=== PATIENT | male | born 1975 | race Caucasian/White ===

== ENCOUNTER → 2016-06-28 | Outpatient (REF) | payer OTHER ==
[2016-06-28 12:24] LABS: ALBUMIN/GLOBULIN RATIO 1.33 (1.00-1.93); ALKALINE PHOSPHATASE 50 U/L (45-117); ALT/SGPT 45 U/L (12-78); ANION GAP 11 MEQ/L (8-16); AST/SGOT 16 U/L (15-37); BILIRUBIN,TOTAL 0.6 MG/DL (0.2-1.0); BLOOD UREA NITROGEN 16 MG/DL (7-18); CALCIUM LEVEL 8.4 MG/DL (8.5-10.1); CARBON DIOXIDE LEVEL 26 MEQ/L (21-32); CHLORIDE LEVEL 105 MEQ/L (98-107); CHOLESTEROL LEVEL 196 MG/DL (<200); CREATININE FOR GFR 0.84 MG/DL (0.70-1.30); GLOMERULAR FILTRATION RATE > 60.0 (>60); GLUCOSE, FASTING 246 MG/DL (70-105); POTASSIUM SERUM 4.2 MEQ/L (3.5-5.1); SODIUM LEVEL 142 MEQ/L (136-145); TRIGLYCERIDES LEVEL 305 MG/DL (<150)
== END ==
LOC: M SFHCPLAZ 08:45
PROVIDERS: ATTEND Family Medicine
DX: E78.5 Hyperlipidemia, unspecified (principal); E11.9 Type 2 diabetes mellitus without complications

== ENCOUNTER → 2016-10-28 | Outpatient (REF) | payer OTHER ==
[2016-10-28 11:43] LABS: BASO % 0.2 % (0.0-1.0); EOS # 0.3 K/mm3 (0.0-0.50); EOS % 4.6 % (0.0-3.0); LARGE UNSTAINED CELL # 0.1 K/mm3 (0.0-0.4); LARGE UNSTAINED CELL % 1.4 % (0.0-4.0); LYMPH # 1.7 K/mm3 (1.5-4.5); LYMPH % 25.2 % (24.0-44.0); MEAN CORPUSCULAR HEMOGLOBIN 28.9 pg (27.0-33.0); MEAN CORPUSCULAR VOLUME 82.8 fl (80.0-96.0); MONO # 0.6 K/mm3 (0.0-0.8); MONO % 8.7 % (0.0-5.0); NEUTROPHILS # 3.8 K/mm3 (1.8-7.7); NEUTROPHILS % 59.9 % (36.0-66.0); PLATELET COUNT, AUTOMATED 193 k/mm3 (150-450); RED CELL DISTRIBUTION WIDTH 12.9 % (11.5-14.5); WHITE BLOOD COUNT 6.3 K/mm3 (4.0-10.0)
[2016-10-28 12:27] LABS: ALBUMIN 3.9 GM/DL (3.2-5.2); ALKALINE PHOSPHATASE 56 U/L (45-117); ALT/SGPT 43 U/L (12-78); ANION GAP 5 MEQ/L (8-16); AST/SGOT 13 U/L (15-37); BILIRUBIN,TOTAL 0.5 MG/DL (0.2-1.0); BLOOD UREA NITROGEN 16 MG/DL (7-18); CALCIUM LEVEL 8.7 MG/DL (8.5-10.1); CARBON DIOXIDE LEVEL 27 MEQ/L (21-32); CHLORIDE LEVEL 107 MEQ/L (98-107); CREATININE FOR GFR 0.83 MG/DL (0.70-1.30); GLOMERULAR FILTRATION RATE > 60.0 (>60); GLUCOSE, FASTING 232 MG/DL (70-105); POTASSIUM SERUM 4.4 MEQ/L (3.5-5.1); SODIUM LEVEL 139 MEQ/L (136-145); TOTAL PROTEIN 6.9 GM/DL (6.4-8.2)
== END ==
LOC: M SFHCPLAZ 08:15
PROVIDERS: ATTEND Family Medicine
DX: I10 Essential (primary) hypertension (principal); E11.9 Type 2 diabetes mellitus without complications

== ENCOUNTER → 2016-11-08 | Outpatient (REF) | payer OTHER ==
[2016-11-08 11:53] LABS: AMYLASE 30 U/L (25-115)
[2016-12-03 10:49] LABS: PROMETHEUS IBD ANTIBODIES SEE SEPARATE REPORT; PROMETHEUS IBD SNP SEE SEPARATE REPORT
== END ==
LOC: M SFHCPLAZ 09:41
PROVIDERS: ATTEND Family Medicine
DX: R19.7 Diarrhea, unspecified (principal)

== ENCOUNTER → 2017-03-27 | Outpatient (REF) | payer OTHER ==
[2017-03-27 14:05] LABS: AMYLASE 38 U/L (25-115)
== END ==
LOC: M SFHCPLAZ 08:16
PROVIDERS: ATTEND Family Medicine
DX: R19.7 Diarrhea, unspecified (principal)

== ENCOUNTER → 2017-07-25 | Outpatient (REF) | payer OTHER ==
[2017-07-25 11:26] LABS: ESTIMATED AVERAGE GLUCOSE 235 MG/DL (60-110); HEMOGLOBIN A1c 9.8 %
[2017-07-25 11:32] LABS: ALBUMIN 4.1 GM/DL (3.2-5.2); ALBUMIN/GLOBULIN RATIO 1.32 (1.00-1.93); ALKALINE PHOSPHATASE 61 U/L (45-117); ALT/SGPT 53 U/L (12-78); ANION GAP 8 MEQ/L (8-16); AST/SGOT 16 U/L (7-37); BILIRUBIN,TOTAL 0.6 MG/DL (0.2-1.0); BLOOD UREA NITROGEN 12 MG/DL (7-18); CALCIUM LEVEL 9.2 MG/DL (8.5-10.1); CARBON DIOXIDE LEVEL 28 MEQ/L (21-32); CHLORIDE LEVEL 107 MEQ/L (98-107); CPK CREATINE PHOSPHOKINASE 147 U/L (39-308); CREATININE FOR GFR 0.77 MG/DL (0.70-1.30); FREE T4 0.87 NG/DL (0.76-1.46); GLOMERULAR FILTRATION RATE > 60.0 (>60); GLUCOSE, FASTING 199 MG/DL (70-100); POTASSIUM SERUM 4.3 MEQ/L (3.5-5.1); SODIUM LEVEL 143 MEQ/L (136-145); TOTAL PROTEIN 7.2 GM/DL (6.4-8.2)
[2017-07-25 11:49] LABS: PTH INTACT 45.7 PG/ML (18.5-88.0); TOTAL 25(OH) VITAMIN D 18.9 NG/ML (30.0-100.0)
== END ==
LOC: M SFHCPLAZ 08:26
DX: E78.5 Hyperlipidemia, unspecified (principal); E55.9 Vitamin D deficiency, unspecified; E11.9 Type 2 diabetes mellitus without complications
CPT/HCPCS: 82550

== ENCOUNTER → 2017-10-25 | Outpatient (REF) | payer OTHER ==
[2017-10-25 11:53] LABS: ALBUMIN/GLOBULIN RATIO 1.38 (1.00-1.93); ALKALINE PHOSPHATASE 56 U/L (45-117); ALT/SGPT 47 U/L (12-78); ANION GAP 7 MEQ/L (8-16); AST/SGOT 17 U/L (7-37); BILIRUBIN,TOTAL 0.5 MG/DL (0.2-1.0); BLOOD UREA NITROGEN 15 MG/DL (7-18); C REACTIVE PROTEIN QUANTITATIV < 0.30 MG/DL (0.00-0.30); CALCIUM LEVEL 8.7 MG/DL (8.5-10.1); CARBON DIOXIDE LEVEL 27 MEQ/L (21-32); CHLORIDE LEVEL 104 MEQ/L (98-107); CHOLESTEROL LEVEL 247 MG/DL (<200); CHOLESTEROL RISK RATIO 6.861 (<5); CPK CREATINE PHOSPHOKINASE 115 U/L (39-308); CREATININE FOR GFR 0.73 MG/DL (0.70-1.30); GLOMERULAR FILTRATION RATE > 60.0 (>60); GLUCOSE, FASTING 243 MG/DL (70-100); HDL CHOLESTEROL 36 MG/DL (>40); MAGNESIUM LEVEL 1.7 MG/DL (1.8-2.4); NON-HDL-C 211 MG/DL; SODIUM LEVEL 138 MEQ/L (136-145); TOTAL PROTEIN 6.9 GM/DL (6.4-8.2); TRIGLYCERIDES LEVEL 779 MG/DL (<150)
[2017-10-25 13:23] LABS: APPEARANCE, URINE CLEAR (CLEAR); BACTERIA, URINE AUTO NEGATIVE (NEGATIVE); BILIRUBIN, URINE AUTO NEGATIVE (NEGATIVE); BLOOD, URINE BLOOD NEGATIVE (NEGATIVE); COLOR, URINE YELLOW (YELLOW); GLUCOSE, URINE (UA) AUTO 3+ mg/dL (NEGATIVE); KETONE, URINE AUTO NEGATIVE (NEGATIVE); LEUKOCYTE ESTERASE, URINE AUTO NEGATIVE (NEGATIVE); MUCUS, URINE SMALL (NEGATIVE); NITRITE, URINE AUTO NEGATIVE (NEGATIVE); PROTEIN, URINE AUTO 1+ mg/dL (NEGATIVE); RBC, URINE AUTO 0 /HPF (0-3); SPECIFIC GRAVITY URINE AUTO 1.041 (1.002-1.035); SQUAMOUS EPITHELIAL CELL UR AU 0 /HPF (0-6); WBC, URINE AUTO 1 /HPF (0-3)
[2017-10-25 13:29] LABS: ESTIMATED AVERAGE GLUCOSE 232 MG/DL (60-110); HEMOGLOBIN A1c 9.7 %
[2017-10-25 14:15] LABS: MAU/CREAT RATIO 118.9 MCG/MG (0.0-30.0)
== END ==
LOC: M SFHCPLAZ 08:01
DX: E11.9 Type 2 diabetes mellitus without complications (principal); I10 Essential (primary) hypertension

== ENCOUNTER → 2017-11-03 | Outpatient (REF) | payer OTHER ==
[2017-11-03 11:54] LABS: BASO % 0.3 % (0.0-1.0); EOS # 0.3 10^3/uL (0.0-0.50); HEMATOCRIT 47.7 % (42.0-52.0); HEMOGLOBIN 15.9 g/dl (13.5-17.5); IMMATURE GRANULOCYTE % 0.3 % (0-3.0); LYMPH # 1.7 10^3/uL (1.5-4.5); LYMPH % 28.7 % (24.0-44.0); MEAN CORPUSCULAR HEMOGLOBIN 27.6 pg (27.0-33.0); MEAN CORPUSCULAR HGB CONC 33.3 g/dl (32.0-36.5); MEAN CORPUSCULAR VOLUME 82.7 fl (80.0-96.0); MONO # 0.6 10^3/uL (0.0-0.8); MONO % 9.1 % (0.0-5.0); NEUTROPHILS # 3.4 10^3/uL (1.8-7.7); NEUTROPHILS % 56.6 % (36.0-66.0); PLATELET COUNT, AUTOMATED 202 10^3/uL (150-450); RED BLOOD COUNT 5.77 10^6/uL (4.30-6.10); WHITE BLOOD COUNT 6.1 10^3/uL (4.0-10.0)
[2017-11-03 12:14] LABS: LACTIC ACID SEPSIS PROTOCOL < 0.1 MMOL/L (0.4-2.0)
[2017-11-03 12:44] LABS: ALBUMIN 3.9 GM/DL (3.2-5.2); ALBUMIN/GLOBULIN RATIO 1.18 (1.00-1.93); ALKALINE PHOSPHATASE 60 U/L (45-117); ALT/SGPT 55 U/L (12-78); ANION GAP 8 MEQ/L (8-16); AST/SGOT 26 U/L (7-37); BILIRUBIN,TOTAL 0.6 MG/DL (0.2-1.0); BLOOD UREA NITROGEN 16 MG/DL (7-18); CALCIUM LEVEL 8.6 MG/DL (8.5-10.1); CARBON DIOXIDE LEVEL 27 MEQ/L (21-32); CHLORIDE LEVEL 106 MEQ/L (98-107); CHOLESTEROL LEVEL 263 MG/DL (< 200); CPK CREATINE PHOSPHOKINASE 141 U/L (39-308); CREATININE FOR GFR 0.81 MG/DL (0.70-1.30); GLOMERULAR FILTRATION RATE > 60.0 (>60); GLUCOSE, FASTING 153 MG/DL (70-100); LDH LACTATE DEHYDROGENASE 183 U/L (87-241); LIPASE 162 U/L (73-393); PHOSPHORUS LEVEL 3.5 MG/DL (2.5-4.9); POTASSIUM SERUM 4.2 MEQ/L (3.5-5.1); SODIUM LEVEL 141 MEQ/L (136-145); TOTAL PROTEIN 7.2 GM/DL (6.4-8.2); TRIGLYCERIDES LEVEL 1119 MG/DL (<150)
[2017-11-03 12:54] LABS: APPEARANCE, URINE CLEAR (CLEAR); BACTERIA, URINE AUTO NEGATIVE (NEGATIVE); BILIRUBIN, URINE AUTO NEGATIVE (NEGATIVE); BLOOD, URINE BLOOD NEGATIVE (NEGATIVE); COLOR, URINE YELLOW (YELLOW); GLUCOSE, URINE (UA) AUTO 3+ mg/dL (NEGATIVE); KETONE, URINE AUTO TRACE mg/dL (NEGATIVE); LEUKOCYTE ESTERASE, URINE AUTO NEGATIVE (NEGATIVE); NITRITE, URINE AUTO NEGATIVE (NEGATIVE); PROTEIN, URINE AUTO NEGATIVE (NEGATIVE); RBC, URINE AUTO 0 /HPF (0-3); SPECIFIC GRAVITY URINE AUTO 1.041 (1.002-1.035); SQUAMOUS EPITHELIAL CELL UR AU 0 /HPF (0-6); UROBILINOGEN, URINE AUTO 0.2 mg/dL (0.0-2.0); WBC, URINE AUTO 0 /HPF (0-3)
== END ==
LOC: M SFHCPLAZ 10:23
DX: R10.12 Left upper quadrant pain (principal)

== ENCOUNTER → 2018-01-08 | Outpatient (CLI) | payer OTHER ==
[2018-01-08 13:30] LABS: BASO % 0.3 % (0.0-1.0); EOS # 0.3 10^3/uL (0.0-0.50); HEMATOCRIT 47.1 % (42.0-52.0); HEMOGLOBIN 15.8 g/dl (13.5-17.5); IMMATURE GRANULOCYTE % 0.4 % (0-3.0); LYMPH # 1.8 10^3/uL (1.5-4.5); LYMPH % 26.4 % (24.0-44.0); MEAN CORPUSCULAR HEMOGLOBIN 27.9 pg (27.0-33.0); MEAN CORPUSCULAR HGB CONC 33.5 g/dl (32.0-36.5); MEAN CORPUSCULAR VOLUME 83.2 fl (80.0-96.0); MONO # 0.6 10^3/uL (0.0-0.8); MONO % 8.5 % (0.0-5.0); NEUTROPHILS # 4.1 10^3/uL (1.8-7.7); NEUTROPHILS % 60.4 % (36.0-66.0); PLATELET COUNT, AUTOMATED 184 10^3/uL (150-450); RED BLOOD COUNT 5.66 10^6/uL (4.30-6.10); RED CELL DISTRIBUTION WIDTH 13.1 % (11.5-14.5); WHITE BLOOD COUNT 6.7 10^3/uL (4.0-10.0)
[2018-01-08 13:33] LABS: SLIDE REVIEW Report; SOURCE PERIPHERAL SMEAR
[2018-01-08 13:35] LABS: APPEARANCE, URINE CLEAR (CLEAR); BACTERIA, URINE AUTO NEGATIVE (NEGATIVE); BILIRUBIN, URINE AUTO NEGATIVE (NEGATIVE); BLOOD, URINE BLOOD NEGATIVE (NEGATIVE); COLOR, URINE YELLOW (YELLOW); GLUCOSE, URINE (UA) AUTO 3+ mg/dL (NEGATIVE); KETONE, URINE AUTO NEGATIVE (NEGATIVE); LEUKOCYTE ESTERASE, URINE AUTO NEGATIVE (NEGATIVE); MUCUS, URINE SMALL (NEGATIVE); NITRITE, URINE AUTO NEGATIVE (NEGATIVE); PROTEIN, URINE AUTO 1+ mg/dL (NEGATIVE); RBC, URINE AUTO 0 /HPF (0-3); SPECIFIC GRAVITY URINE AUTO 1.041 (1.002-1.035); SQUAMOUS EPITHELIAL CELL UR AU 0 /HPF (0-6); UROBILINOGEN, URINE AUTO 0.2 mg/dL (0.0-2.0); WBC, URINE AUTO 0 /HPF (0-3)
[2018-01-09 01:15] LABS: ALBUMIN 4.2 GM/DL (3.2-5.2); ALKALINE PHOSPHATASE 61 U/L (45-117); ALT/SGPT 76 U/L (12-78); AST/SGOT 33 U/L (7-37); BILIRUBIN,DIRECT < 0.1 MG/DL (0.0-0.2); BILIRUBIN,TOTAL 0.4 MG/DL (0.2-1.0); TOTAL PROTEIN 7.2 GM/DL (6.4-8.2)
[2018-01-10 19:20] LABS: HIV 1&2 SCREEN CENTAUR NEGATIVE (NEGATIVE)
== END ==
LOC: M SMT 09:14
DX: R16.1 Splenomegaly, not elsewhere classified (principal)
CPT/HCPCS: 80076

== ENCOUNTER → 2018-01-16 | Outpatient (REF) | payer OTHER ==
[2018-01-16 12:40] LABS: ESTIMATED AVERAGE GLUCOSE 232 MG/DL (60-110); HEMOGLOBIN A1c 9.7 %
[2018-01-16 12:44] LABS: ALBUMIN 3.8 GM/DL (3.2-5.2); ALBUMIN/GLOBULIN RATIO 1.15 (1.00-1.93); ALKALINE PHOSPHATASE 66 U/L (45-117); ALT/SGPT 54 U/L (12-78); ANION GAP 7 MEQ/L (8-16); AST/SGOT 20 U/L (7-37); BILIRUBIN,TOTAL 0.5 MG/DL (0.2-1.0); BLOOD UREA NITROGEN 13 MG/DL (7-18); CALCIUM LEVEL 8.7 MG/DL (8.5-10.1); CARBON DIOXIDE LEVEL 28 MEQ/L (21-32); CHLORIDE LEVEL 101 MEQ/L (98-107); CHOLESTEROL LEVEL 286 MG/DL (<200); CHOLESTEROL RISK RATIO 8.411 (<5); CREATININE FOR GFR 0.71 MG/DL (0.70-1.30); GLOMERULAR FILTRATION RATE > 60.0 (>60); GLUCOSE, FASTING 289 MG/DL (70-100); HDL CHOLESTEROL 34 MG/DL (>40); NON-HDL-C 252 MG/DL; POTASSIUM SERUM 4.3 MEQ/L (3.5-5.1); SODIUM LEVEL 136 MEQ/L (136-145); TOTAL PROTEIN 7.1 GM/DL (6.4-8.2); TRIGLYCERIDES LEVEL 877 MG/DL (<150)
[2018-01-16 12:48] LABS: TOTAL 25(OH) VITAMIN D 22.3 NG/ML (30.0-100.0)
[2018-01-16 12:49] LABS: PTH INTACT 37.7 PG/ML (18.5-88.0)
[2018-01-17 14:17] LABS: C-PEPTIDE 4.3 ng/mL (1.1-4.4)
== END ==
LOC: M SFHCPLAZ 10:04
DX: E55.9 Vitamin D deficiency, unspecified (principal); E11.8 Type 2 diabetes mellitus with unspecified complications; E78.5 Hyperlipidemia, unspecified

== ENCOUNTER → 2018-01-18 | Outpatient (CLI) | payer OTHER ==
[~2018-01-18] MED LIST: GASTROGRAFIN SOLUTION 30ML (Q9963) As Ordered; ISOVUE-370 76% 100ML VIAL (Q9967) As Ordered
== END ==
LOC: M RAD 13:41
DX: K76.0 Fatty (change of) liver, not elsewhere classified (principal); R16.0 Hepatomegaly, not elsewhere classified
CPT/HCPCS: Q9963

== ENCOUNTER → 2018-03-20 | Outpatient (REF) | payer OTHER ==
[2018-03-20 12:12] LABS: ANION GAP 7 MEQ/L (8-16); BLOOD UREA NITROGEN 24 MG/DL (7-18); CALCIUM LEVEL 9.8 MG/DL (8.5-10.1); CARBON DIOXIDE LEVEL 27 MEQ/L (21-32); CHLORIDE LEVEL 104 MEQ/L (98-107); GLOMERULAR FILTRATION RATE > 60.0 (>60); GLUCOSE, FASTING 207 MG/DL (70-100); POTASSIUM SERUM 4.3 MEQ/L (3.5-5.1); SODIUM LEVEL 138 MEQ/L (136-145)
== END ==
LOC: M SFHCPLAZ 08:07
DX: R16.1 Splenomegaly, not elsewhere classified (principal)

== ENCOUNTER 2018-04-17 12:15 | Day surgery (SDC) | payer OTHER ==
[~2018-04-17] VITALS: Ht 177.8 cm; Wt 108.9 kg
[~2018-04-17 12:15] MED LIST changes: +EZET10TA PO; -GASTROGRAFIN SOLUTION 30ML (Q9963) As Ordered; +INVO300T PO; +IRBE75TA5 PO; -ISOVUE-370 76% 100ML VIAL (Q9967) As Ordered; +MELO15TA28 PO; +METF-723 PO; +PANT40TA3 PO; +ROSU40TA3 PO; +TRES1INJ SQ; +VICT18IN SQ; +VITA200015 PO
[2018-04-17] MEDS ORDERED: NS 1,000 ML IV ONE (12:30)
[2018-04-17] MEDS ORDERED: LIDOCAINE 2% INJ 100 MG/5 ML SDV (FOR ANES.) As Ordered ONE (14:27)
[2018-04-17] MEDS ORDERED: PROPOFOL 200 MG/20 ML VIAL As Ordered ONE ×2 (14:27→14:56)
--- NOTE | 2018-04-17 15:22 | ROOR ---
Patient Name: Woody Galdamez Procedure Date: 04/17/2018 2:38 PM Date of : 1975 Age: 43 Room: [facility] Gender: Male Note Status: Finalized Procedure: Colonoscopy Indications: Abdominal pain in the left lower quadrant, Abdominal pain in the left upper quadrant Providers: Santino Hubbard MD Referring MD: To Juárez MD Requesting Provider: Medicines: Monitored Anesthesia Care Complications: No immediate complications. Procedure: Pre-Anesthesia Assessment: - Prior to the procedure, a History and Physical was performed, and patient medications and allergies were reviewed. The patient is competent. The risks and benefits of the procedure and the sedation options and risks were discussed with the patient. All questions were answered and informed consent was obtained. Patient identification and proposed procedure were verified by the physician, the nurse and the police investigator in the procedure room. Mental Status Examination: alert and oriented. Airway Examination: normal oropharyngeal airway and neck mobility. CV Examination: regular rate and rhythm. Prophylactic Antibiotics: The patient does not require prophylactic antibiotics. Prior Anticoagulants: The patient has taken no previous anticoagulant or antiplatelet agents. ASA Grade Assessment: II - A patient with mild systemic disease. After reviewing the risks and benefits, the patient was deemed in satisfactory condition to undergo the procedure. The anesthesia plan was to use monitored anesthesia care (MAC). Immediately prior to administration of medications, the patient was re-assessed for adequacy to receive sedatives. The heart rate, respiratory rate, oxygen saturations, blood pressure, adequacy of pulmonary ventilation, and response to care were monitored throughout the procedure. The physical status of the patient was re-assessed after the procedure. The Colonoscope was introduced through the anus and advanced to the cecum, identified by appendiceal orifice and ileocecal valve. The colonoscopy was performed without difficulty. The patient tolerated the procedure well. The quality of the bowel preparation was excellent. Findings: The perianal and digital rectal examinations were normal. The colon (entire examined portion) appeared normal. Impression: - The entire examined colon is normal. - No specimens collected. Recommendation: - Discharge patient to home. - Resume previous diet. - Continue present medications. Santino Hubbard MD 04/17/2018 3:21:38 PM Number of Addenda: 0 Note Initiated On: 04/17/2018 2:38 PM Estimated Blood Loss: Estimated blood loss: none.
[2018-04-17 15:40] VITALS: BP 144/82
== END 2018-04-17 15:47 | disposition home or self-care (01) ==
LOC: M OPP 12:15
PROVIDERS: ATTEND Surgery
DX: R10.32 Left lower quadrant pain (principal); R10.12 Left upper quadrant pain; K76.0 Fatty (change of) liver, not elsewhere classified; K21.9 Gastro-esophageal reflux disease without esophagitis; E78.5 Hyperlipidemia, unspecified; E11.9 Type 2 diabetes mellitus without complications; Z79.4 Long term (current) use of insulin; Z79.899 Other long term (current) drug therapy

== ENCOUNTER → 2018-07-05 | Outpatient (REF) | payer OTHER ==
[2018-07-05 14:08] LABS: C REACTIVE PROTEIN QUANTITATIV < 0.30 MG/DL (0.00-0.30); CHOLESTEROL LEVEL 311 MG/DL (<200); CHOLESTEROL RISK RATIO 8.405 (<5); FREE T4 0.91 NG/DL (0.76-1.46); HDL CHOLESTEROL 37 MG/DL (>40); NON-HDL-C 274 MG/DL; TRIGLYCERIDES LEVEL 1914 MG/DL (<150)
[2018-07-05 15:16] LABS: HEMOGLOBIN A1c 10.5 %
== END ==
LOC: M SFHCPLAZ 08:15
PROVIDERS: ATTEND Family Medicine
DX: E11.8 Type 2 diabetes mellitus with unspecified complications (principal)

== ENCOUNTER → 2018-11-20 | Outpatient (REF) | payer OTHER ==
[~2018-11-20] MED LIST changes: -EZET10TA PO; +EZET10TA21 PO; -ROSU40TA3 PO; +ROSU40TA4 PO
== END ==
LOC: M SFHCPLAZ 08:42
PROVIDERS: ATTEND Physician Assistant Medical
DX: K21.9 Gastro-esophageal reflux disease without esophagitis (principal); E78.5 Hyperlipidemia, unspecified; I10 Essential (primary) hypertension; E11.8 Type 2 diabetes mellitus with unspecified complications

== ENCOUNTER → 2018-12-10 | Outpatient (REF) | payer OTHER ==
[2018-12-10 10:00] LABS: BASO % 0.4 % (0.0-1.0); EOS # 0.2 10^3/uL (0.0-0.50); EOS % 4.1 % (0.0-3.0); HEMATOCRIT 46.7 % (42.0-52.0); HEMOGLOBIN 15.7 g/dl (13.5-17.5); LYMPH # 1.5 10^3/uL (1.5-4.5); LYMPH % 26.6 % (24.0-44.0); MEAN CORPUSCULAR HEMOGLOBIN 27.7 pg (27.0-33.0); MEAN CORPUSCULAR HGB CONC 33.6 g/dl (32.0-36.5); MEAN CORPUSCULAR VOLUME 82.5 fl (80.0-96.0); MONO # 0.6 10^3/uL (0.0-0.8); MONO % 9.9 % (0.0-5.0); NEUTROPHILS # 3.3 10^3/uL (1.8-7.7); NEUTROPHILS % 58.5 % (36.0-66.0); PLATELET COUNT, AUTOMATED 189 10^3/uL (150-450); RED BLOOD COUNT 5.66 10^6/uL (4.30-6.10); WHITE BLOOD COUNT 5.7 10^3/uL (4.0-10.0)
[2018-12-10 10:36] LABS: HEMOGLOBIN A1c 9.1 %
[2018-12-10 10:53] LABS: ALBUMIN 4.1 GM/DL (3.2-5.2); ALT/SGPT 42 U/L (12-78); BILIRUBIN,TOTAL 0.4 MG/DL (0.2-1.0); BLOOD UREA NITROGEN 13 MG/DL (7-18); CALCIUM LEVEL 9.4 MG/DL (8.5-10.1); CARBON DIOXIDE LEVEL 29 MEQ/L (21-32); CHLORIDE LEVEL 107 MEQ/L (98-107); CHOLESTEROL LEVEL 243 MG/DL (<200); CHOLESTEROL RISK RATIO 6.942 (<5); CPK CREATINE PHOSPHOKINASE 151 U/L (39-308); CREATININE FOR GFR 0.83 MG/DL (0.70-1.30); GLOMERULAR FILTRATION RATE > 60.0 (>60); GLUCOSE, FASTING 229 MG/DL (70-100); HDL CHOLESTEROL 35 MG/DL (>40); NON-HDL-C 208 MG/DL; POTASSIUM SERUM 4.2 MEQ/L (3.5-5.1); SODIUM LEVEL 142 MEQ/L (136-145); TOTAL PROTEIN 7.3 GM/DL (6.4-8.2); TRIGLYCERIDES LEVEL 999 MG/DL (<150)
== END ==
LOC: M SFHCPLAZ 08:11
PROVIDERS: ATTEND Physician Assistant Medical
DX: K21.9 Gastro-esophageal reflux disease without esophagitis (principal); E78.5 Hyperlipidemia, unspecified; I10 Essential (primary) hypertension; E11.8 Type 2 diabetes mellitus with unspecified complications

== ENCOUNTER → 2019-03-21 | Outpatient (REF) | payer OTHER ==
[2019-03-21 12:10] LABS: CHOLESTEROL RISK RATIO 2.9 (<5)
[2019-03-21 14:00] LABS: HEMOGLOBIN A1c 8.7 %
== END ==
LOC: M SFHCPLAZ 08:24
PROVIDERS: ATTEND Physician Assistant Medical
DX: E11.8 Type 2 diabetes mellitus with unspecified complications (principal); E78.5 Hyperlipidemia, unspecified

== ENCOUNTER 2019-04-10 01:58 | Emergency (ER) | payer OTHER ==
[~2019-04-10] VITALS: Ht 175.3 cm; Wt 109.1 kg
[2019-04-10 02:46] LABS: BASO % 0.2 % (0.0-1.0); EOS # 0.2 10^3/uL (0.0-0.5); EOS % 1.6 % (0.0-3.0); HEMATOCRIT 50.1 % (42.0-52.0); HEMOGLOBIN 16.5 g/dl (13.5-17.5); LYMPH # 1.1 10^3/uL (1.5-5.0); MEAN CORPUSCULAR HEMOGLOBIN 27.8 pg (27.0-33.0); MEAN CORPUSCULAR HGB CONC 32.9 g/dl (32.0-36.5); MEAN CORPUSCULAR VOLUME 84.5 fl (80.0-96.0); MONO # 0.8 10^3/uL (0.0-0.8); MONO % 6.8 % (0.0-5.0); NEUTROPHILS % 82.2 % (36.0-66.0); PLATELET COUNT, AUTOMATED 234 10^3/uL (150-450); RED BLOOD COUNT 5.93 10^6/uL (4.30-6.10); WHITE BLOOD COUNT 12.2 10^3/uL (4.0-10.0)
[2019-04-10 03:08] LABS: ALBUMIN 4.6 GM/DL (3.2-5.2); ALT/SGPT 36 U/L (12-78); BILIRUBIN,DIRECT 0.1 MG/DL (0.0-0.2); BILIRUBIN,TOTAL 0.8 MG/DL (0.2-1.0); BLOOD UREA NITROGEN 13 MG/DL (7-18); CALCIUM LEVEL 9.6 MG/DL (8.5-10.1); CARBON DIOXIDE LEVEL 26 MEQ/L (21-32); CHLORIDE LEVEL 105 MEQ/L (98-107); CREATININE FOR GFR 0.97 MG/DL (0.70-1.30); GLOMERULAR FILTRATION RATE > 60.0 (>60); GLUCOSE, FASTING 224 MG/DL (70-100); LIPASE 174 U/L (73-393); SODIUM LEVEL 138 MEQ/L (136-145); TOTAL PROTEIN 7.7 GM/DL (6.4-8.2)
[2019-04-10] MEDS ORDERED: NS 1,000 ML IV ONE (03:30)
[2019-04-10] MEDS ORDERED: METOCLOPRAMIDE INJ 10MG/2ML VIAL (J2765) IV ONE (03:30)
[2019-04-10 05:28] LABS: VENOUS BASE EXCESS -3.5 (-2.0-2.0); VENOUS O2 SATURATION 61.5 % (60.0-80.0); VENOUS PARTIAL PRESSURE CO2 46.8 mmHg (38.0-50.0); VENOUS PARTIAL PRESSURE O2 34.8 mmHg (30.0-50.0); VENOUS STANDARD HCO3 20.7 MEQ/L; VENOUS TOTAL CO2 24.5 MEQ/L (24.0-28.0)
[2019-04-10] MEDS ORDERED: REGL10TA6 PO (05:40)
[2019-04-10 05:43] VITALS: BP 122/78
[2019-04-10 05:50] LABS: ACETONE/KETONE 1.71 MG/DL (<2.81)
== END 2019-04-10 05:51 | disposition home or self-care (01) ==
LOC: M ED 01:58
DX: K52.9 Noninfective gastroenteritis and colitis, unspecified (principal); E11.9 Type 2 diabetes mellitus without complications; I10 Essential (primary) hypertension; E78.5 Hyperlipidemia, unspecified; K21.9 Gastro-esophageal reflux disease without esophagitis; Z88.0 Allergy status to penicillin; Z79.4 Long term (current) use of insulin; Z79.84 Long term (current) use of oral hypoglycemic drugs; Z79.899 Other long term (current) drug therapy
CPT/HCPCS: 80048; 80076; 82010; 82803; 83605; 83690; 83930; 85025; 96374; 99284; J2765

== ENCOUNTER 2019-05-26 11:00 | Emergency (ER) | payer OTHER ==
[~2019-05-26] VITALS: Ht 175.3 cm; Wt 109.8 kg
[~2019-05-26 11:00] MED LIST changes: +REGL10TA6 PO
[2019-05-26] MEDS ORDERED: OZEM2INJ2 (11:09)
[2019-05-26] MEDS ORDERED: TELM1TAB33 (11:09)
[2019-05-26] MEDS ORDERED: ESOM40CA35 (11:09)
[2019-05-26] MEDS ORDERED: ISOVUE-370 76% 100ML VIAL (Q9967) As Ordered ONE (11:43)
[2019-05-26] MEDS ORDERED: ONDANSETRON 4MG/2ML VIAL (J2405) IV ONE (11:45)
[2019-05-26] MEDS ORDERED: MORPHINE 2 MG/ML 1ML VIAL (J2270) IV PRN (11:45)
[2019-05-26 11:52] LABS: BASO % 0.6 % (0.0-1.0); EOS # 0.3 10^3/uL (0.0-0.5); EOS % 3.8 % (0.0-3.0); HEMATOCRIT 47.8 % (42.0-52.0); HEMOGLOBIN 15.9 g/dl (13.5-17.5); LYMPH # 1.5 10^3/uL (1.5-5.0); LYMPH % 23.5 % (24.0-44.0); MEAN CORPUSCULAR HEMOGLOBIN 27.4 pg (27.0-33.0); MEAN CORPUSCULAR HGB CONC 33.3 g/dl (32.0-36.5); MEAN CORPUSCULAR VOLUME 82.4 fl (80.0-96.0); MONO # 0.5 10^3/uL (0.0-0.8); MONO % 7.8 % (0.0-5.0); NEUTROPHILS # 4.2 10^3/uL (1.5-8.5); NEUTROPHILS % 63.8 % (36.0-66.0); PLATELET COUNT, AUTOMATED 193 10^3/uL (150-450); WHITE BLOOD COUNT 6.6 10^3/uL (4.0-10.0)
[2019-05-26 12:02] LABS: INR 0.97; PARTIAL THROMBOPLASTIN TIME 27.7 SECONDS (25.0-38.4); PROTHROMBIN TIME 12.6 SECONDS (11.8-14.0)
--- NOTE | 2019-05-26 13:02 | REP ---
AP PORTABLE CHEST: 05/26/2019. Comparison: 01/08/2018. Clinical history: Chest pain. Findings: Lungs are adequately inflated. There is no effusion, infiltrate, atelectasis or mass. The heart, mediastinal and hilar contours are normal. Aorta and airway were grossly intact. Minor degenerative changes in the spine and AC joints. Impression: 1. No acute cardiopulmonary change. Electronically Signed by Rush Castellanos MD 05/26/2019 08:27 P
[2019-05-26] MEDS ORDERED: NORCO, ANEXSIA 5/325MG TABLET (HYDROcodone/ACETAMINOPHEN) PO ONE (13:15)
[2019-05-26 13:17] LABS: ALT/SGPT 65 U/L (12-78); BILIRUBIN,DIRECT < 0.1 MG/DL (0.0-0.2); BILIRUBIN,TOTAL 0.4 MG/DL (0.2-1.0); CK-MB VALUE MASS < 1.0 NG/ML (<3.6); CPK CREATINE PHOSPHOKINASE 82 U/L (39-308); FREE T4 1.13 NG/DL (0.76-1.46); LIPASE 126 U/L (73-393); MB/CK RELATIVE INDEX 1.22 (< OR =4); TOTAL PROTEIN 7.1 GM/DL (6.4-8.2); TROPONIN I < 0.02 NG/ML (< 0.10)
--- NOTE | 2019-05-26 13:26 | REP ---
CT ANGIOGRAM CHEST: 05/26/2019. Comparison: AP portable chest 05/26/2019, PA 01/08/2018. Clinical history: Chest pain. Rule out dissection. Technique: Bolus of 75 mL Isovue 370, scanning through the chest with coronal and sagittal reconstructions provided. Findings: The lung corado are well inflated and clear. There is no effusion, infiltrate, nodule, atelectasis or mass. No pleural thickening or calcified pleural plaque. No pneumothorax or pneumomediastinum. The heart is not enlarged. There is no pericardial thickening or effusion. The main, right and left pulmonary arteries as well as visible lobar arteries are without filling defects to suggest embolism proximally. The mediastinum, hilar regions, axillary and supraclavicular regions show no adenopathy or mass. There is a small nodule in the left lobe of the thyroid about 6.6 mm. The ascending arch and descending aorta have normal calibers and are without aneurysm or dissection. That portion of upper abdominal aorta included is normal. Three vessels off the arch show no stenosis, aneurysm or dissection. Bone windows show the sternum, manubrium, clavicles, left AC joint, the bilateral glenohumeral joints, scapulae, visualized ribs and spine without acute finding. There are some marginal osteophytes in the spine which I would regard as normal for age. Upper abdomen included shows borderline hepatomegaly with a 17 cm vertical diameter of the liver in the midclavicular line and the entire liver not imaged. No splenomegaly or focal splenic lesion. Adrenal glands, gallbladder, pancreas, upper poles of kidneys and bowel loops are all unremarkable. Impression: 1. There is no CT evidence of aortic aneurysm or dissection. The great vessels off the arch also are without aneurysm or dissection. 2. No central pulmonary emboli visible. 3. There is no mediastinal or hilar mass, adenopathy, fluid collection or other significant finding. 4. Lungs clear. Bones unremarkable. 5. Upper abdomen with borderline liver size with a 17 cm vertical diameter of the liver which is incompletely evaluated in this field of view. No focal lesions in the abdomen included on this study. Electronically Signed by Rush Castellanos MD 05/26/2019 08:27 P
[2019-05-26] MEDS ORDERED: SKEL800T97 PO (14:09)
[2019-05-26] MEDS ORDERED: NORC1TAB7 PO (14:10)
--- NOTE | 2019-05-26 14:32 | REP ---
THORACIC SPINE THREE VIEWS: 05/26/2019. Clinical history: Mid back pain. Comparison: CT angio chest bone windows 05/26/2019, CXR 01/08/2018. Findings: Three views including the coned view of the cervicothoracic junction show no scoliosis on the AP view. The pedicles, spinous and transverse processes along with posterior rib articulations and medial clavicles were all intact. Small marginal osteophytes are seen at multiple levels. Paraspinal lines are not displaced. The lateral view shows no compression fracture or destructive lesion. There are small anterior osteophytes. Posterior elements intact on the lateral view. The swimmer's projection shows cervical thoracic junction aligning normally and some cervical spondylosis in the lower cervical region is mild. Impression: 1. Negative thoracic spine series for fracture, destructive bone lesion, significant degenerative change or other acute finding. The paraspinal lines were normal. Negative exam. Electronically Signed by Rush Castellanos MD 05/26/2019 08:32 P
[2019-05-26 14:37] VITALS: BP 133/70
--- NOTE | 2019-05-26 19:27 | ECGEPIP ---
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
== END 2019-05-26 14:48 | disposition home or self-care (01) ==
LOC: M ED 11:00
DX: R07.9 Chest pain, unspecified (principal); R06.02 Shortness of breath; M54.6 Pain in thoracic spine; R94.31 Abnormal electrocardiogram [ECG] [EKG]; E10.9 Type 1 diabetes mellitus without complications; E78.5 Hyperlipidemia, unspecified; Z88.0 Allergy status to penicillin; Z79.4 Long term (current) use of insulin; Z79.83 Long term (current) use of bisphosphonates; Z79.84 Long term (current) use of oral hypoglycemic drugs; Z79.899 Other long term (current) drug therapy
CPT/HCPCS: 71045; 71275; 72072; 80047; 80076; 82550; 82553; 83690; 84439; 84443; 84484; 85025; 85610; 85730; 93005; 93041; 94760; 96374; 99285; J2270; Q9967

== ENCOUNTER 2019-10-11 21:08 | Day surgery (SDC) | payer OTHER ==
[~2019-10-11] VITALS: Ht 175.3 cm; Wt 113.5 kg
[~2019-10-11 21:08] MED LIST changes: +ESOM40CA35 PO; +IRBE75TA4 PO; -IRBE75TA5 PO; +NORC1TAB7 PO; +OZEM2INJ2 SC; +SKEL800T97 PO; +TELM1TAB33 PO
[2019-10-11] MEDS ORDERED: METF-838 PO (21:34)
[2019-10-11] MEDS ORDERED: FENO145T7 PO (21:34)
[2019-10-11] MEDS ORDERED: FARX1TAB3 PO (21:34)
[2019-10-11] MEDS ORDERED: ceFAZolin SOD 1 GM in D5W MINI-BAG PLUS 50 ML IV ONE (22:15)
--- NOTE | 2019-10-11 22:54 | REPVR ---
PROCEDURE INFORMATION: Exam: CT Left Lower Extremity Without Contrast, Knee Exam date and time: 10/11/2019 10:34 PM Age: 44 years old Clinical indication: Injury or trauma; Injury history: Drill fell onto knee breaking drill bit; Initial encounter; Puncture; Patella or knee; Left; With foreign body; Additional info: Foreign body in knee TECHNIQUE: Imaging protocol: CT of the Left lower extremity without contrast was performed. Exam focused on the knee. Radiation optimization: All CT scans at this facility use at least one of these dose optimization techniques: automated exposure control; mA and/or kV adjustment per patient size (includes targeted exams where dose is matched to clinical indication); or iterative reconstruction. COMPARISON: CR Knee, complete LEFT 10/11/2019 9:41 PM FINDINGS: Bones/joints: Small knee joint effusion. Soft tissues: Metallic fragment demonstrated in the suprapatellar soft tissues and piercing the anterior superior cortical likely margin of the patella representing a metallic foreign body. Subcutaneous air demonstrated in the deep subcutaneous layer in the suprapatellar region likely posttraumatic. Small popliteal fossa cyst. Inflammatory changes in the prepatellar and infrapatellar soft tissues anterior to the infrapatellar tendon. IMPRESSION: 1. Metallic fragment demonstrated in the suprapatellar soft tissues and proximal patellar likely representing a metallic foreign body. 2. Subcutaneous air demonstrated in the deep subcutaneous layer in the suprapatellar region likely posttraumatic. 3. Small knee joint effusion. 4. Inflammatory changes in the prepatellar and infrapatellar soft tissues anterior to the infrapatellar tendon. Electronically signed by: Kimani Stoddard On 10/11/2019 22:54:26 PM
[2019-10-11] MEDS ORDERED: ACETAMINOPHEN 500 MG TAB PO PRN (23:30)
[2019-10-11 23:32] LABS: BASO % 0.3 % (0.0-1.0); EOS # 0.2 10^3/uL (0.0-0.5); EOS % 2.1 % (0.0-3.0); LYMPH # 1.3 10^3/uL (1.5-5.0); LYMPH % 16.8 % (24.0-44.0); MEAN CORPUSCULAR HEMOGLOBIN 27.8 pg (27.0-33.0); MEAN CORPUSCULAR HGB CONC 33.3 g/dl (32.0-36.5); MEAN CORPUSCULAR VOLUME 83.5 fl (80.0-96.0); MONO # 0.7 10^3/uL (0.0-0.8); MONO % 9.1 % (0.0-5.0); NEUTROPHILS # 5.5 10^3/uL (1.5-8.5); NEUTROPHILS % 71.3 % (36.0-66.0); PLATELET COUNT, AUTOMATED 205 10^3/uL (150-450); RED BLOOD COUNT 5.03 10^6/uL (4.30-6.10); WHITE BLOOD COUNT 7.7 10^3/uL (4.0-10.0)
[2019-10-11] MEDS ORDERED: VITAD1000T PO (23:32)
[2019-10-11] MEDS: LR 1,000 ML IV SCH (23:38)
[2019-10-12] VITALS (8 sets, daily range): BP systolic 122–152; BP diastolic 74–95
[2019-10-12 00:05] LABS: BLOOD UREA NITROGEN 17 MG/DL (7-18); CALCIUM LEVEL 8.8 MG/DL (8.5-10.1); CARBON DIOXIDE LEVEL 27 MEQ/L (21-32); CHLORIDE LEVEL 108 MEQ/L (98-107); CREATININE FOR GFR 0.87 MG/DL (0.70-1.30); GLOMERULAR FILTRATION RATE > 60.0 (>60); GLUCOSE, FASTING 148 MG/DL (70-100); POTASSIUM SERUM 4.2 MEQ/L (3.5-5.1); SODIUM LEVEL 140 MEQ/L (136-145)
[2019-10-12] MEDS: MORPHINE 2 MG/ML 1ML VIAL (J2270) IV PRN ×2 (01:36→05:39)
[2019-10-12] MEDS ORDERED: HYDR-3713 PO (08:51)
[2019-10-12] MEDS ORDERED: BACT800T5 PO (08:51)
[2019-10-12] MEDS ORDERED: CLINDAMYCIN 900 MG in IV 1 EA IV ONE (09:00)
[2019-10-12] MEDS: LR 1,000 ML IV SCH (10:13)
--- NOTE | 2019-10-12 10:47 | REP ---
A new five views left knee. Indication: Left knee pain following injury. Comparison: 05/03/2010. Findings: Radiopaque foreign body is noted along the anterior-superior aspect of the patella. Joint spaces normal. There is no pleural effusion. No acute fracture, subluxation or dislocation is present. Impression: Foreign body along the anterior superior aspect of the patella. No acute fracture. Electronically Signed by Woody Aguirre DO 10/12/2019 10:38 A
[2019-10-12] MEDS ORDERED: MIDAZOLAM INJ 2MG/2ML VIAL (J2250 PER 1MG) As Ordered ONE (14:40)
[2019-10-12] MEDS ORDERED: ONDANSETRON 4MG/2ML VIAL As Ordered ONE (14:40)
[2019-10-12] MEDS ORDERED: fentaNYL 100 MCG/2 ML INJECTION (J3010) As Ordered ONE (14:40)
[2019-10-12] MEDS ORDERED: propofoL 200 MG/20 ML VIAL As Ordered ONE (14:40)
[2019-10-12] MEDS ORDERED: LIDOCAINE 2% 100MG/5ML SDV (FOR ANES.) As Ordered ONE (14:40)
[2019-10-12] MEDS ORDERED: ceFAZolin 2 GM/D5W 50 ML IV BAG (J0690 PER 500MG) As Ordered ONE (14:51)
[2019-10-12] MEDS ORDERED: BUPIVACAINE HCL 0.5% 30 ML VIAL As Ordered ONE (14:51)
[2019-10-12] MEDS ORDERED: dexameTHASONE 4 MG/ML 1ML VIAL (J1100 PER 1MG) As Ordered ONE (14:58)
[2019-10-12] MEDS ORDERED: KETOROLAC 60MG 2ML VIAL As Ordered ONE (15:19)
[2019-10-12] MEDS ORDERED: LR 1,000 ML IV SCH (16:30)
[2019-10-12] MEDS ORDERED: oxyCODONE 5MG TAB PO PRN (16:30)
[2019-10-12] MEDS ORDERED: fentaNYL 100 MCG/2 ML INJECTION (J3010) IV PRN (16:30)
[2019-10-12] MEDS ORDERED: ONDANSETRON 4MG/2ML VIAL IV PRN (16:30)
--- NOTE | 2019-10-13 09:08 | CR ---
DATE OF CONSULTATION: 10/12/2019 INDICATION: Left knee foreign body. 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 The x-rays in the emergency room (ER) revealed a retained drill bit tip lodged within the patella. I did obtain a CT scan to ensure no arthrotomy, and there was no effusion on the CT scan and it appeared that the drill bit was lodged both within bone and in the quadriceps tendon. 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 Risks and benefits of the surgery were discussed. Written informed consent obtained. So the patient was reporting moderate pain with knee motion up to 7 out of 10 on the pain scale. He denied pain at rest. Pain is described as sharp and stabbing. He denied numbness in his foot. The patient's past medical history, past surgical history, medications, allergies, and social history were reviewed. He is an insulin-dependent diabetic and has hypertension. He has had tonsils and adenoids removed. He had a right knee surgery in the past. He also has some chronic back pain. Patient does not smoke, abuse alcohol or illicit drugs. 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 He has a girlfriend. REVIEW OF SYSTEMS: Patient denied neurologic, cardiac, pulmonary, abdominal, or skin or urinary symptoms. Musculoskeletal as above. PHYSICAL EXAM: Revealed a well-appearing gentleman in no distress. Alert and orientated times three. Neurologic: Appropriate mood and affect. Cardiovascular: 2+ posterior tibial (PT) pulse. Pulmonary: Nonlabored breathing. Abdomen: Nondistended. Skin: Of the left knee has a puncture wound 2 cm proximal to the proximal pole of the patella. Musculoskeletal: Patient had significant pain with any knee flexion. No effusion. Calf soft and nontender. Distally neurovascular intact. X-rays of the left knee from [facility] obtained and available for my review. There is a retained drill bit lodged in the superior pole of the patella. No fractures. CT scan also revealed a large drill bit within the proximal pole of the patella and quadriceps tendon. No obvious effusion. No clear evidence of arthrotomy. Patient received 2 grams intravenous (IV) cefazolin and was updated on tetanus. He was admitted to [facility] status for planned foreign body removal and knee washout.
--- NOTE | 2019-10-13 15:57 | ECGEPIP ---
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
--- NOTE | 2019-10-14 07:51 | REP ---
Clinical: Foreign body removal. Technique: Intraoperative fluoroscopic imaging using portable C-arm technique. Findings: Multiple images demonstrate satisfactory removal of small foreign body along the superior aspect of the patella. Total fluoroscopic time 11 seconds. Impression: Satisfactory foreign body removal. Electronically Signed by Jax Boone MD 10/14/2019 07:43 A
--- NOTE | 2019-10-15 18:21 | RO ---
DATE OF PROCEDURE: 10/12/2019 PREOPERATIVE DIAGNOSES: 1. Left knee foreign body. 2. Left knee potential traumatic arthrotomy POSTOPERATIVE DIAGNOSES: 1. Left knee foreign body. PROCEDURE: 1. Left knee open foreign body removal. 2. Left knee diagnostic arthroscopy and irrigation and debridement of knee joint. SURGEON: Dr. Andres Sena ECOSYSTEM ECOLOGY PROFESSOR: None. ANESTHESIA: General. IV FLUIDS: Lactated Ringer's. ESTIMATED BLOOD LOSS: 5 mL. IMPLANTS: None. SPECIMEN: Drill bit tip to pathology. CLOSURE: Nylon. DESCRIPTION OF PROCEDURE: Patient identified in the preoperative holding area. He was previously seen up on the floor where a drill had fallen off and by bad luck, it penetrated the superior pole of the patella. A piece had broken off and was lodged within the bone and within the quad tendon. 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 Based on the CT scan, it was unlikely there was a traumatic arthrotomy but given the high risk and high complication rate of a missed arthrotomy, I recommended both a foreign body removal and an arthroscopic washout. The patient agreed. He was very concerned about the caustic nature of the pressure treated wood. So after a discussion of the risks and benefits of surgery, written informed consent was obtained. DESCRIPTION OF PROCEDURE: Patient identified in the preoperative holding area, the left leg was marked. He was brought to the operating room, placed supine on a well-padded operating room (OR) table. He received 2 grams of IV cefazolin additionally. He received 2 grams in the emergency room (ER) initially. After induction of general anesthesia, a well-padded tourniquet was applied to the left thigh. The left leg was then prepped and draped in a normal sterile fashion. Time-out performed per hospital protocol. Left leg exsanguinated with an Esmarch bandage, tourniquet inflated to 275 mmHg. I made a just over 2 cm midline incision with a #15 blade at the superior pole of patella. Sharp dissection through bursa down to the quad tendon. A large C-arm was then used, AP and lateral views, to localize the tip of the drill bit. A fresh #15 blade used to sharply incise the quad tendon midline. There was some scattered debris consistent with pieces of wood. These were removed with a rongeur. I then was able to identify the tip of the drill bit. This was grasped with a needle front end loader driver and was removed in its entirety. AP, lateral views with a large C-arm confirmed that it was successfully removed. I then removed several additional fragments of debris and then irrigated that wound with 500 mL of lactated Ringer's. Quad tendon was then closed with a #0 PDS suture in a figure-of-8 fashion. Bursa was closed with #2-0 PDS, subcuticular #2-0 PDS and a running #3-0 nylon. I then injected 10 mL of 0.50% Marcaine without epinephrine at that initial incision. A spinal needle was then used to localize an anterolateral portal and portal made with #11-blade. 30-degree arthroscope was introduced into the joint. 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 At the trochlea, he had grade 3 chondral changes. Medial compartment was entered where there was some degenerative tearing in the posterior horn of the medial meniscus, grade 2 chondromalacia. Anterior cruciate ligament (ACL) was intact. Lateral compartment was entered. There was some mild chondromalacia. The arthroscope was then used to flush 6 liters of lactated Ringer's throughout the joint, taking care to range the knee. I also carefully inspected the suprapatellar pouch, and there was no conclusive arthrotomy from the drill bit. However, there was some synovial disruption, which may have been from the surgical exposure. No fragments of wood encountered. The knee was irrigated and drained. Portals closed with nylon suture. I then injected additional 20 mL of 0.50% Marcaine, some into the joint, some at the portals. Tourniquet let down with excellent reperfusion. Bulky sterile dressing applied. He was then placed back into his knee immobilizer, extubated, transferred to the post-anesthesia care unit (PACU), in stable condition. He will be discharged on a week of antibiotics.
== END 2019-10-12 20:39 | disposition home or self-care (01) ==
LOC: M ED 21:08 → M SDC 21:09 → M MSPAV 10-12 00:56 → ENRESERV 10-12 00:57 → M SDC 10-12 20:39
PROVIDERS: ATTEND Orthopaedic Surgery
DX: S81.042A Puncture wound with foreign body, left knee, initial encounter (principal); W29.8XXA Contact with other powered hand tools and household machinery, initial encounter; Y92.009 Unspecified place in unspecified non-institutional (private) residence as the place of occurrence of the external cause; Y93.H3 Activity, building and construction; Y99.9 Unspecified external cause status; E11.9 Type 2 diabetes mellitus without complications; Z79.4 Long term (current) use of insulin; I10 Essential (primary) hypertension; Z88.0 Allergy status to penicillin; Z18.10 Retained metal fragments, unspecified
CPT/HCPCS: 27372; 29871; 73564; 73700; 80048; 85025; 86850; 86900; 86901; 87486; 87581; 87633; 87798; 88300; 93005; 96361; 96365; 96366; 99284; J0690; J1100; J1885; J2250; J2270; J2405; J3010

== ENCOUNTER → 2020-04-28 | Outpatient (CLI) | payer OTHER ==
[~2020-04-28] MED LIST changes: +BACT800T5 PO; +D31000TA2 PO; +FARX1TAB3 PO; +FENO145T7 PO; +HYDR-3713 PO; +METF-838 PO; +PANT40TA29 PO; -PANT40TA3 PO
--- NOTE | 2020-04-28 10:01 | REP ---
INDICATION: CHEST PAIN,UNSPECIFIED COMPARISON: None. TECHNIQUE: Frontal view of the chest with multiple views of the right hemithorax. FINDINGS: Frontal view of the chest demonstrates no acute cardiopulmonary process, contusion, effusion, or pneumothorax. Multiple views of the right hemithorax demonstrates no acute rib fracture/injury or pathology. IMPRESSION: Normal rib series. <Electronically signed by Jax Boone > 04/28/20 [id number]
== END ==
LOC: M WUC 09:39
PROVIDERS: ATTEND Physician Assistant
DX: R07.9 Chest pain, unspecified (principal)

== ENCOUNTER → 2020-07-22 | Outpatient (REF) | payer OTHER ==
[2020-07-22 10:11] LABS: BASO % 0.5 % (0.0-1.0); EOS # 0.3 10^3/uL (0.0-0.5); EOS % 4.7 % (0.0-3.0); HEMATOCRIT 48.9 % (42.0-52.0); HEMOGLOBIN 16.1 g/dl (13.5-17.5); LYMPH # 1.5 10^3/uL (1.5-5.0); LYMPH % 24.5 % (24.0-44.0); MEAN CORPUSCULAR HEMOGLOBIN 27.6 pg (27.0-33.0); MEAN CORPUSCULAR HGB CONC 32.9 g/dl (32.0-36.5); MEAN CORPUSCULAR VOLUME 83.9 fl (80.0-96.0); MONO # 0.7 10^3/uL (0.0-0.8); MONO % 11.1 % (2.0-8.0); NEUTROPHILS # 3.5 10^3/uL (1.5-8.5); PLATELET COUNT, AUTOMATED 159 10^3/uL (150-450); RED BLOOD COUNT 5.83 10^6/uL (4.30-6.10)
[2020-07-22 10:47] LABS: ALBUMIN 3.6 GM/DL (3.2-5.2); ALT/SGPT 36 U/L (12-78); BILIRUBIN,TOTAL 0.4 MG/DL (0.2-1.0); BLOOD UREA NITROGEN 18 MG/DL (7-18); CALCIUM LEVEL 8.9 MG/DL (8.5-10.1); CARBON DIOXIDE LEVEL 30 MEQ/L (21-32); CHLORIDE LEVEL 104 MEQ/L (98-107); CPK CREATINE PHOSPHOKINASE 103 U/L (39-308); CREATININE FOR GFR 0.69 MG/DL (0.70-1.30); GLOMERULAR FILTRATION RATE > 60.0 (>60); GLUCOSE, FASTING 172 MG/DL (70-100); POTASSIUM SERUM 4.3 MEQ/L (3.5-5.1); PTH INTACT 57.1 PG/ML (18.5-88.0); SODIUM LEVEL 139 MEQ/L (136-145); VITAMIN B12 LEVEL 598 PG/ML (247-911)
== END ==
LOC: M SFHCPLAZ 08:10
PROVIDERS: ATTEND Family Medicine
DX: E78.5 Hyperlipidemia, unspecified (principal); E55.9 Vitamin D deficiency, unspecified; M54.12 Radiculopathy, cervical region; I10 Essential (primary) hypertension

== ENCOUNTER → 2021-12-23 | Outpatient (CLI) | payer OTHER, MEDICAID ==
[~2021-12-23] MED LIST changes: -D31000TA2 PO; +VITA100093 PO
== END ==
LOC: M SOG 08:10
PROVIDERS: ATTEND Orthopaedic Surgery
DX: M25.512 Pain in left shoulder (principal); M25.511 Pain in right shoulder

== ENCOUNTER → 2022-05-06 | Outpatient (REF) | payer OTHER, MEDICAID ==
[2022-05-06 13:25] LABS: ALKALINE PHOSPHATASE 62 U/L (46-116); ALT/SGPT 56 U/L (7.0-40); AST/SGOT 27 U/L (<34); BILIRUBIN,TOTAL 0.4 MG/DL (0.3-1.2); BLOOD UREA NITROGEN 17 MG/DL (9-23); CALCIUM LEVEL 9.4 MG/DL (8.5-10.1); CARBON DIOXIDE LEVEL 26 MMOL/L (20-31); CHLORIDE LEVEL 105 MMOL/L (98-107); CREATININE FOR GFR 0.63 MG/DL (0.70-1.30); GLOMERULAR FILTRATION RATE > 60.0 (>60); GLUCOSE, FASTING 180 MG/DL (60-100); POTASSIUM SERUM 4.4 MMOL/L (3.5-5.1); SODIUM LEVEL 139 MMOL/L (136-145); TOTAL PROTEIN 7.3 G/DL (5.7-8.2)
== END ==
LOC: M SFHCADAM 09:30
PROVIDERS: ATTEND Family Medicine
DX: E11.8 Type 2 diabetes mellitus with unspecified complications (principal)

== ENCOUNTER → 2022-10-12 | Outpatient (REF) | payer OTHER, MEDICAID ==
[2022-10-12 16:44] LABS: BASO % 0.3 % (0.0-1.0); EOS # 0.3 10^3/uL (0.0-0.5); FREE T4 1.15 NG/DL (0.89-1.76); HEMATOCRIT 46.7 % (42.0-52.0); HEMOGLOBIN 15.6 g/dl (13.5-17.5); LYMPH # 1.9 10^3/uL (1.5-5.0); LYMPH % 26.3 % (24.0-44.0); MEAN CORPUSCULAR HEMOGLOBIN 27.8 pg (27.0-33.0); MEAN CORPUSCULAR HGB CONC 33.4 g/dl (32.0-36.5); MEAN CORPUSCULAR VOLUME 83.1 fl (80.0-96.0); MONO # 0.6 10^3/uL (0.0-0.8); MONO % 8.5 % (2.0-8.0); NEUTROPHILS # 4.3 10^3/uL (1.5-8.5); NEUTROPHILS % 60.6 % (36.0-66.0); PLATELET COUNT, AUTOMATED 240 10^3/uL (150-450); RED BLOOD COUNT 5.62 10^6/uL (4.30-6.10); THYROID STIMULATING HORMONE 1.64 uIU/ML (0.55-4.78)
== END ==
LOC: M SFHCADAM 13:50
PROVIDERS: ATTEND Family Medicine
DX: Z01.818 Encounter for other preprocedural examination (principal); R19.7 Diarrhea, unspecified

== ENCOUNTER → 2022-10-26 | Outpatient (REF) | payer OTHER, MEDICAID ==
[2022-10-26 15:27] LABS: CREATININE, URINE 65.8 MG/DL; MAU/CREAT RATIO 22.7 MCG/MG (0.0-30.0)
== END ==
LOC: M SFHCADAM 10:42
PROVIDERS: ATTEND Family Medicine
DX: E11.8 Type 2 diabetes mellitus with unspecified complications (principal); E55.9 Vitamin D deficiency, unspecified; R19.7 Diarrhea, unspecified

== ENCOUNTER 2022-11-09 10:13 | Day surgery (SDC) | payer OTHER ==
[~2022-11-09] VITALS: Ht 175.3 cm; Wt 111.1 kg
[~2022-11-09 10:13] MED LIST changes: +BSS IRRIG/VANCO(10MG)/TOBRA(5MG)/EPINEPH(1:1000-0.5CC)500ML BAG-ORONLY IR ONE; +HUMA100I5 SQ; +LIDOCAINE 1% SDV 5ML VIAL As Ordered ONE; +LIDOCAINE 3.5 % 1ML OPHTH TOPICAL GEL OU ONE; +MIDAZOLAM INJ 2MG/2ML VIAL As Ordered ONE; +OFLOXACIN 0.3 % (OCUFLOX) OPTH SOL 5ML OS ONE; +PHENYLEPHRINE 10% OPHTH SOL 5ML OS PRN; +STEG15TA PO; +fentaNYL 100 MCG/2 ML INJECTION As Ordered ONE
[2022-11-09] MEDS: PHENYLEPHRINE 2.5% OPHTH SOL 2ML OS SCH ×3 (10:49→10:52)
[2022-11-09] MEDS: TROPICAMIDE 1% OPHTH SOLN 15ML OS SCH ×3 (10:49→10:52)
[2022-11-09] MEDS: CYCLOPENTOLATE 1% OPHTH SOLN 2ML BTL OS SCH ×2 (10:50→10:51)
[2022-11-09] MEDS ORDERED: CEFUROXIME 1MG/0.1ML INTRACAMERAL INJ As Ordered ONE (11:53)
[2022-11-09 12:16] VITALS: BP 109/61; TEMP 98.1; O2SAT 98
== END 2022-11-09 12:35 | disposition home or self-care (01) ==
LOC: M SDC 10:13
PROVIDERS: ATTEND Ophthalmology
DX: H25.12 Age-related nuclear cataract, left eye (principal); I10 Essential (primary) hypertension; E78.00 Pure hypercholesterolemia, unspecified; E11.9 Type 2 diabetes mellitus without complications; K21.9 Gastro-esophageal reflux disease without esophagitis; G47.30 Sleep apnea, unspecified; Z88.0 Allergy status to penicillin; Z79.4 Long term (current) use of insulin; Z79.899 Other long term (current) drug therapy; Z79.84 Long term (current) use of oral hypoglycemic drugs; E66.8 Other obesity; K76.0 Fatty (change of) liver, not elsewhere classified; E78.5 Hyperlipidemia, unspecified; J30.9 Allergic rhinitis, unspecified; Z88.8 Allergy status to other drugs, medicaments and biological substances
CPT/HCPCS: 66984; J0697; J2250; J3010

== ENCOUNTER 2022-11-23 10:05 | Day surgery (SDC) | payer OTHER ==
[~2022-11-23] VITALS: Ht 175.3 cm; Wt 111.2 kg
[~2022-11-23 10:05] MED LIST changes: +CEFUROXIME 1MG/0.1ML INTRACAMERAL INJ As Ordered ONE; +CYCLOPENTOLATE 1% OPHTH SOLN 2ML BTL OD SCH; +OFLOXACIN 0.3 % (OCUFLOX) OPTH SOL 5ML OD ONE; -OFLOXACIN 0.3 % (OCUFLOX) OPTH SOL 5ML OS ONE; +PHENYLEPHRINE 10% OPHTH SOL 5ML OD PRN; -PHENYLEPHRINE 10% OPHTH SOL 5ML OS PRN; +PHENYLEPHRINE 2.5% OPHTH SOL 2ML OD SCH; +TROPICAMIDE 1% OPHTH SOLN 15ML OD SCH; -fentaNYL 100 MCG/2 ML INJECTION As Ordered ONE
[2022-11-23] MEDS ORDERED: MIDAZOLAM INJ 2MG/2ML VIAL As Ordered ONE (13:00)
[2022-11-23 13:10] VITALS: BP 127/71; TEMP 97; O2SAT 96
== END 2022-11-23 13:26 | disposition home or self-care (01) ==
LOC: M SDC 10:05
PROVIDERS: ATTEND Ophthalmology
DX: H25.11 Age-related nuclear cataract, right eye (principal); G47.33 Obstructive sleep apnea (adult) (pediatric); I10 Essential (primary) hypertension; E78.5 Hyperlipidemia, unspecified; E11.9 Type 2 diabetes mellitus without complications; K21.9 Gastro-esophageal reflux disease without esophagitis; Z79.84 Long term (current) use of oral hypoglycemic drugs; Z79.899 Other long term (current) drug therapy; Z88.0 Allergy status to penicillin
CPT/HCPCS: 66984; J0697; J2250

== ENCOUNTER 2023-02-07 07:08 | Day surgery (SDC) | payer OTHER ==
[~2023-02-07] VITALS: Ht 177.8 cm; Wt 113.4 kg
[~2023-02-07 07:08] MED LIST changes: -BSS IRRIG/VANCO(10MG)/TOBRA(5MG)/EPINEPH(1:1000-0.5CC)500ML BAG-ORONLY IR ONE; -CEFUROXIME 1MG/0.1ML INTRACAMERAL INJ As Ordered ONE; -CYCLOPENTOLATE 1% OPHTH SOLN 2ML BTL OD SCH; -LIDOCAINE 1% SDV 5ML VIAL As Ordered ONE; -LIDOCAINE 3.5 % 1ML OPHTH TOPICAL GEL OU ONE; +METF10004 PO; -MIDAZOLAM INJ 2MG/2ML VIAL As Ordered ONE; +NATU1TAB5 PO; +NS 1,000 ML IV ONE; -OFLOXACIN 0.3 % (OCUFLOX) OPTH SOL 5ML OD ONE; -PHENYLEPHRINE 10% OPHTH SOL 5ML OD PRN; -PHENYLEPHRINE 2.5% OPHTH SOL 2ML OD SCH; +ROSU10TA6 PO; -TROPICAMIDE 1% OPHTH SOLN 15ML OD SCH
[2023-02-07] MEDS ORDERED: fentaNYL 100 MCG/2 ML INJECTION As Ordered ONE (07:54)
[2023-02-07] MEDS ORDERED: propofoL 200 MG/20 ML VIAL As Ordered ONE ×2 (07:55→07:56)
[2023-02-07] MEDS ORDERED: LIDOCAINE 2% 100MG/5ML SDV (FOR ANES.) As Ordered ONE (07:56)
[2023-02-07 09:02] VITALS: BP 116/67; O2SAT 95
== END 2023-02-07 09:16 | disposition home or self-care (01) ==
LOC: M OPP 07:08
PROVIDERS: ATTEND Internal Medicine Gastroenterology
DX: K64.8 Other hemorrhoids (principal); K63.5 Polyp of colon; R19.7 Diarrhea, unspecified; K29.70 Gastritis, unspecified, without bleeding; R12 Heartburn; G47.30 Sleep apnea, unspecified; Z79.02 Long term (current) use of antithrombotics/antiplatelets; Z79.85 Long-term (current) use of injectable non-insulin antidiabetic drugs; Z79.899 Other long term (current) drug therapy; Z88.0 Allergy status to penicillin
CPT/HCPCS: 43239; 45380; 45385; 88305; J3010

== ENCOUNTER → 2023-04-17 | Outpatient (REF) | payer OTHER, MEDICAID ==
[~2023-04-17] MED LIST changes: -NS 1,000 ML IV ONE
[2023-04-17 13:49] LABS: HEMOGLOBIN A1c 9.8 % (4.0-6.0)
[2023-04-17 13:54] LABS: ALBUMIN 4.1 G/DL (3.2-5.2); ALKALINE PHOSPHATASE 62 U/L (46-116); ALT/SGPT 42 U/L (7.0-40); AST/SGOT 13 U/L (<34); BILIRUBIN,TOTAL 0.3 MG/DL (0.3-1.2); BLOOD UREA NITROGEN 21 MG/DL (9-23); CALCIUM LEVEL 10.2 MG/DL (8.5-10.1); CARBON DIOXIDE LEVEL 24 MMOL/L (20-31); CHLORIDE LEVEL 101 MMOL/L (98-107); CREATININE FOR GFR 0.63 MG/DL (0.70-1.30); GLOMERULAR FILTRATION RATE > 60.0 (>60); GLUCOSE, FASTING 209 MG/DL (60-100); POTASSIUM SERUM 4.3 MMOL/L (3.5-5.1); SODIUM LEVEL 136 MMOL/L (136-145); TOTAL PROTEIN 6.9 G/DL (5.7-8.2)
== END ==
LOC: M SFHCADAM 08:11
PROVIDERS: ATTEND Physician Assistant
DX: E11.8 Type 2 diabetes mellitus with unspecified complications (principal)

== ENCOUNTER → 2023-08-22 | Outpatient (REF) | payer OTHER, MEDICAID ==
[~2023-08-22] MED LIST changes: +IRBE75TA11 PO; -IRBE75TA4 PO
== END ==
LOC: M SFHCADAM 08:44
PROVIDERS: ATTEND Family Medicine
DX: E11.65 Type 2 diabetes mellitus with hyperglycemia (principal)